=== PATIENT | male | born 1945 | race Caucasian/White ===

== ENCOUNTER 2018-08-17 10:32 | Day surgery (SDC) | payer MEDICARE, BC ==
[2018-08-17] VITALS (9 sets, daily range): BP systolic 129–166; BP diastolic 45–97
[~2018-08-17] VITALS: Ht 182.9 cm; Wt 90.7 kg
[2018-08-17] MEDS ORDERED: normal saline 1,000 ML IV SCH (10:50)
[2018-08-17] MEDS ORDERED: diphenhydrAMINE 25mg capsule PO PRN (10:50)
[2018-08-17] MEDS ORDERED: FURO-150 PO (10:59)
[2018-08-17] MEDS ORDERED: fentaNYL/PF 50MCG/1 ML 2ML syringe ONE ×2 (11:30→13:22)
[2018-08-17] MEDS ORDERED: midazolam 2 mg/2 ml injection ONE ×4 (11:30→14:09)
[2018-08-17] MEDS ORDERED: lidocaine 1%/epinephrine 1:100,000 injection 50ml vial ONE (11:30)
[2018-08-17] MEDS ORDERED: iohexol 350 MG/ML 50ML vial IV ONE ×4 (11:30→13:58)
[2018-08-17] MEDS: normal saline 1000ml 1,000 ML IV SCH ×2 (11:50→17:27)
[2018-08-17] MEDS ORDERED: vancomycin 1,000mg inj ONE ×2 (11:54→11:58)
[2018-08-17] MEDS ORDERED: cefazolin/dext.iso 2gm/100ml 100 ML IV ONE (11:54)
[2018-08-17 12:39] LABS: BASOPHILS # (AUTO) 0.1 X10'3 (0-0.2); BASOPHILS % (AUTO) 1.3 % (0-1); EOSINOPHILS # (AUTO) 0.1 X10'3 (0-0.9); EOSINOPHILS % (AUTO) 1.5 % (0-6); HEMATOCRIT 31.6 % (42.0-52.0); HEMOGLOBIN 10.3 g/dl (14.0-17.9); LYMPHOCYTES # (AUTO) 2.5 X10'3 (1.1-4.8); LYMPHOCYTES % (AUTO) 46.6 % (21-51); MEAN CORPUSCULAR HEMOGLOBIN 27.7 PG (27.0-31.0); MEAN CORPUSCULAR HGB CONC 32.5 g/dL (33.0-36.5); MEAN CORPUSCULAR VOLUME 85.3 FL (78-98); MONOCYTES # (AUTO) 0.3 X10'3 (0-0.9); MONOCYTES % (AUTO) 6.2 % (2-12); NEUTROPHILS # (AUTO) 2.4 X10'3 (1.8-7.7); NEUTROPHILS % (AUTO) 44.4 % (42-75); PLATELET COUNT 239 X10'3 (140-440); RED CELL DISTRIBUTION WIDTH 21.3 % (11.5-14.5); WHITE BLOOD COUNT 5.4 X10'3 (4.5-11.0)
[2018-08-17 12:49] LABS: GLUCOSE 85 MG/DL (70-104)
[2018-08-17 12:50] LABS: ALBUMIN 4.2 G/DL (3.4-5.0); ANION GAP 8 (8-16); BLOOD UREA NITROGEN 17 MG/DL (7-18); BUN/CREATININE RATIO 14.4 (5.4-32.0); CALCIUM 10.3 MG/DL (8.5-10.1); CHLORIDE 102 MMOL/L (99-107); CREATININE 1.18 MG/DL (0.60-1.10); MAGNESIUM 1.8 MG/DL (1.5-2.4); SODIUM 138 MMOL/L (135-145); TOTAL CARBON DIOXIDE 27.6 MMOL/L (24-32); eGFR 60 ML/MIN
[2018-08-17 12:54] LABS: POTASSIUM 4.1 MMOL/L (3.5-5.1)
[2018-08-17] MEDS ORDERED: ketorolac tromethamine 15mg/ml inj. IV ONE (16:00)
[2018-08-17 16:24] LABS: PLATELET ESTIMATE NORMAL
[2018-08-17 16:25] LABS: ANISOCYTOSIS 3+; ELLIPTOCYTES 1+; HYPOCHROMASIA 1+; POLYCHROMASIA 1+; TARGET CELLS 1+; TEAR DROP CELLS FEW
[2018-08-17] MEDS ORDERED: furosemide 20 MG/2 ML vial IV ONE (17:00)
== END 2018-08-17 18:35 | disposition home or self-care (01) ==
LOC: SSTAY O 10:32
PROVIDERS: ATTEND Internal Medicine Cardiovascular Disease
DX: I42.8 Other cardiomyopathies (principal); I49.9 Cardiac arrhythmia, unspecified; I50.82 Biventricular heart failure; I49.3 Ventricular premature depolarization; I45.10 Unspecified right bundle-branch block; I10 Essential (primary) hypertension; E11.9 Type 2 diabetes mellitus without complications; Z79.899 Other long term (current) drug therapy; F17.210 Nicotine dependence, cigarettes, uncomplicated; I27.20 Pulmonary hypertension, unspecified; I71.4 Abdominal aortic aneurysm, without rupture; R00.1 Bradycardia, unspecified; I44.1 Atrioventricular block, second degree
CPT/HCPCS: 33225; 33264; 36415; 71045; 80048; 83735; 85025; 85610; A6258; C1769; C1777; C1882; C1887; C1894; C1900; J0690; J1940; J2250; J3010; J3370; J3490; J7030; Q0163; Q9967; 33221; 99152; 99153; A4565; A4620

== ENCOUNTER 2018-11-02 08:55 | Day surgery (SDC) | payer MEDICARE, BC ==
[2018-11-02] VITALS (9 sets, daily range): BP systolic 143–152; BP diastolic 55–74
[~2018-11-02] VITALS: Ht 182.9 cm; Wt 91.3 kg
[~2018-11-02 08:55] MED LIST: FURO-150 PO
[2018-11-02] MEDS ORDERED: dexamethasone sod phosphate 4mg/ml inj. IV ONE (09:15)
[2018-11-02] MEDS ORDERED: acetaminophen 325mg tablet PO ONE (09:15)
[2018-11-02] MEDS ORDERED: diphenhydrAMINE 25mg capsule PO ONE (09:15)
== END 2018-11-02 13:50 | disposition home or self-care (01) ==
LOC: SSTAY O 08:55
PROVIDERS: ATTEND Internal Medicine Hematology & Oncology
DX: D47.2 Monoclonal gammopathy (principal)
CPT/HCPCS: 36415; 36430; 86644; 86885; 86900; 86901; 86920; 86945; J1100; P9016; Q0163